=== PATIENT | female | born 1955 | race Caucasian/White ===

== ENCOUNTER 2016-07-08 11:43 | Inpatient (IN) | payer OTHER ==
[2016-07-08 13:11] VITALS: BMI 19.8
--- NOTE | 2016-07-08 14:30 | HP ---
COWS - Scale Resting Pulse: 0= [place] 80 or Below Sweatin=Flushed/Facial Moisture Restless Observation: 1= Difficult to Sit Still Pupil Size: 0= Normal to Room Light Bone or Joint Aches: 2= Severe Diffuse Aches Runny Nose/ Eye Tearin= Runny Nose/Eyes GI Upset > 30mins: 2= Nausea/Diarrhea Tremor Observation: 2= Slight Tremor Visible Yawning Observation: 2= >3x During Session Anxiety or Irritability: 2=Irritable/Anxious Goose Flesh Skin: 3=Piloerection COWS Score: 18 CIWA Score - CIWA Score Nausea/Vomitin-No Nausea/No Vomiting Muscle Tremors: 4-Moderate,w/Arms Extend Anxiety: 3 Agitation: 4-Moderately Restless Paroxysmal Sweats: 3 Orientation: 0-Oriented Tacttile Disturbances: 0-None Auditory Disturbances: 0-None Visual Disturbances: 0-None Headache: 0-None Present CIWA-Ar Total Score: 14 Admission ROS BHS - HPI Chief Complaint: I am tired and need to stop using. Allergies/Adverse Reactions: Allergies Allergy/AdvReac Type Severity Reaction Status Date / Time No Known Allergies Allergy Verified 07/08/16 14:12 History of Present Illness: pt is a 61yr old female with a history of heroin and alcohol dependence seeking detox for treatment. Exam Limitations: No Limitations - Ebola screening Have you traveled outside of the country in the last 21 days: No (N) Have you had contact with anyone from an Ebola affected area: No Have you been sick,other than usual withdrawal symptoms: No Do you have a fever: No - Review of Systems Constitutional: Loss of Appetite, Unintentional Wgt. Loss EENT: reports: No Symptoms Reported Cardiac: reports: No Symptoms Reported GI: reports: Poor Appetite, Poor Fluid Intake : reports: No Symptoms Reported Musculoskeletal: reports: Back Pain Integumentary: reports: Flushing Neuro: reports: Tingling, Tremors Endocrine: reports: Excessive Sweating, Flushing, Intolerance to Cold, Intolerance to Heat Hematology: reports: No Symptoms Reported Psychiatric: reports: Judgement Intact, Orientated x3, Agitated, Anxious Other Systems: Reviewed and Negative Patient History - Patient Medical History Hx Anemia: No Hx Asthma: No Hx Chronic Obstructive Pulmonary Disease (COPD): No Hx Cancer: No Hx Cardiac Disorders: No Hx Congestive Heart Failure: No Hx Hypertension: No Hx Hypercholesterolemia: No Hx Pacemaker: No HX Cerebrovascular Accident: No Hx Seizures: No Hx Dementia: No Hx Diabetes: No Hx Gastrointestinal Disorders: No Hx Liver Disease: No Hx Genitourinary Disorders: No Hx Sexually Transmitted Disorders: No Hx Renal Disease (ESRD): No Hx Thyroid Disease: No Hx Human Immunodeficiency Virus (HIV): Yes (SINCE 1991) Hx Hepatitis C: Yes (tx'ed with sommer ) Hx Depression: Yes (anxiety ) Hx Suicide Attempt: No Hx Bipolar Disorder: No Hx Schizophrenia: No - Patient Surgical History Past Surgical History: No - PPD History Previous Implant?: No Documented Results: Negative w/proof Date: 02/06/16 Results: 0 MM - Reproductive History Patient is a Female of Child Bearing Age (11 -55 yrs old): No Last Menstrual Period: 02/03/04 - Smoking Cessation Smoking history: Former smoker Have you smoked in the past 12 months: No Aproximately how many cigarettes per day: 0 If you are a former smoker, when did you quit?: 30 YEARS AGO Cigars Per Day: 0 Hx Chewing Tobacco Use: No Initiated information on smoking cessation: No - Substance & Tx. History Hx Alcohol Use: Yes Hx Substance Use: Yes Substance Use Type: Alcohol, Heroin Hx Substance Use Treatment: Yes - Substances Abused Alcohol-beer Route: Oral Frequency: Daily Amount used: 2 (40 oz.) Age of first use: 20 Date of Last Use: 07/07/16 Heroin Route: Inhalation Frequency: Daily Amount used: 3 bags Age of first use: 20 Date of Last Use: 07/08/16 Family Disease History - Family Disease History Family Disease History: Other: Brother (alcoholsm ) Admission Physical Exam [facility] - Vital Signs Vital Signs: Vital Signs - 24 hr 07/08/16 13:09 Temperature 96.4 F L Pulse Rate 67 Respiratory 20 Rate Blood Pressure 133/81 - Physical General Appearance: Yes: Appropriately Dressed, Moderate Distress, Thin, Irritable, Anxious HEENTM: Yes: Normal Voice Respiratory: Yes: Lungs Clear, Normal Breath Sounds, No Respiratory Distress Neck: Yes: No masses,lesions,Nodules Breast: Yes: Within Normal Limits Cardiology: Yes: Regular Rhythm, Regular Rate, S1, S2 Abdominal: Yes: Normal Bowel Sounds, Non Tender, Soft Genitourinary: Yes: Within Normal Limits Back: Yes: Normal Inspection Musculoskeletal: Yes: full range of Motion, Back pain Extremities: Yes: Normal Capillary Refill, Normal Inspection, Tremors Neurological: Yes: Fully Oriented, Alert, Normal Response Integumentary: Yes: Normal Color, Diaphoresis Lymphatic: Yes: Within Normal Limits - Diagnostic (1) Alcohol dependence with uncomplicated withdrawal Current Visit: Yes Status: Chronic (2) Opioid dependence with withdrawal Current Visit: Yes Status: Chronic (3) HIV (human immunodeficiency virus infection) Current Visit: Yes Status: Chronic Comment: has been compliant with her medication. (4) Hepatitis C Current Visit: Yes Status: Chronic Qualifiers: Viral hepatitis chronicity: unspecified Hepatic coma status: without hepatic coma Qualified Code(s): B19.20 - Unspecified viral hepatitis C without hepatic coma Cleared for Admission [facility] - Detox or Rehab [facility] Level of Care: Medically Managed Detox Regimen/Protocol: Methadone/Librium [facility] Breath Alcohol Content Breath Alcohol Content: 0 Urine Pregancy Test - Result Urine Test Results: Negative- NO Line Present Urine Drug Screen - Results Drug Screen Negative: No Urine Drug Screen Results: OPI-Opiates, BZO-Benzodiazepines, OXY-Oxycodone
[2016-07-08] MEDS ORDERED: MAG HYDROX/AL HYDROX/SIMETH 30 ML UNIT-DOSE CUP PO PRN (14:35)
[2016-07-08] MEDS ORDERED: chlordiazePOXIDE HCL 25 MG CAPSULE PO PRN (14:35)
[2016-07-08] MEDS ORDERED: MAGNESIUM CITRATE 300 ML BOTTLE PO PRN (14:35)
[2016-07-08] MEDS ORDERED: LOPERAMIDE HCL 2 MG CAPSULE PO PRN (14:35)
[2016-07-08] MEDS ORDERED: P-EPHED 60MG/TRIPROLIDI 2.5MG TABLET PO PRN (14:35)
[2016-07-08] MEDS ORDERED: ACETAMINOPHEN 325 MG TABLET (FP) PO PRN (14:35)
[2016-07-08] MEDS ORDERED: guaiFENesin/D-METHORPHAN HB 10 ML UNIT-DOSE CUPS PO PRN (14:35)
[2016-07-08] MEDS ORDERED: MENTHOL/PHENOL 1 EACH UD MM PRN (14:35)
[2016-07-08] MEDS ORDERED: MAGNESIUM HYDROX 2400MG/30ML ORAL SUSPENSION 30 ML CUP PO PRN (14:35)
[2016-07-08] MEDS ORDERED: IBUPROFEN 400 MG TABLET (FP) PO PRN (14:35)
[2016-07-08] MEDS ORDERED: chlordiazePOXIDE HCL 25 MG CAPSULE PO ONE (15:01)
[2016-07-08] MEDS ORDERED: METHADONE HCL 10 MG TABLET (FOR DETOX USE ONLY) PO ONE ×2 (15:04→23:00)
[2016-07-08] MEDS: chlordiazePOXIDE HCL 25 MG CAPSULE PO SCH ×2 (17:19→22:24)
[2016-07-08 20:02] LABS: URINE APPEARANCE CLOUDY; URINE BILIRUBIN NEGATIVE (NEGATIVE); URINE COLOR DKYELLOW; URINE GLUCOSE (UA) NEGATIVE (NEGATIVE); URINE KETONE NEGATIVE (NEGATIVE); URINE NITRITE POSITIVE (NEGATIVE); URINE PROTEIN NEGATIVE (NEGATIVE); URINE UROBILINOGEN 2.0 E.U/dl E.U./dl (0.2-1.0)
[2016-07-08 20:10] LABS: URINE BLOOD 2+ (NEGATIVE); URINE LEUK ESTERASE TRACE (NEGATIVE)
[2016-07-08 20:23] LABS: URINE BACTERIA FEW /hpf (NONE SEEN); URINE MUCUS FEW; URINE RBC 201 /hpf (0-3); URINE WBC 28 /hpf (3-5)
[2016-07-08] MEDS: EMTRICITABINE 200MG/TENOFOVIR 300MG PO SCH (22:23)
[2016-07-08] MEDS: RALTEGRAVIR POTASSIUM 400 MG TAB PO SCH (22:23)
[2016-07-08] MEDS: THIAMINE HCL 100 MG TABLET (FP) PO SCH (22:24)
[2016-07-08] MEDS: diphenhydrAMINE HCL 50 MG CAPSULE PO PRN (22:26)
[2016-07-09] MEDS: chlordiazePOXIDE HCL 25 MG CAPSULE PO SCH ×2 (06:23→11:55)
[2016-07-09] MEDS ORDERED: METHADONE HCL 10 MG TABLET (FOR DETOX USE ONLY) PO SCH (10:00)
[2016-07-09 10:44] LABS: MCH 28.8 pg (25.7-33.7); MCHC 32.4 g/dl (32.0-36.0); MEAN CELL VOLUME 88.9 fl (80-96); MEAN PLT VOLUME 9.9 fl (7.5-11.1); PLATELET COUNT 69 K/MM3 (134-434); WHITE BLOOD COUNT 2.9 K/mm3 (4.0-10.0)
[2016-07-09] MEDS ORDERED: diazePAM 5 MG TABLET PO ONE (11:18)
[2016-07-09] MEDS: RALTEGRAVIR POTASSIUM 400 MG TAB PO SCH ×2 (11:55→22:35)
[2016-07-09] MEDS: PRENATAL VITAMINS W/ FOLIC ACID TABLET (FP) PO SCH (11:56)
[2016-07-09 11:58] LABS: ALBUMIN 3.3 g/dl (3.4-5.0); ANION GAP 8 (8-16); CALCIUM 8.6 mg/dL (8.5-10.1); CO2 28 mmol/L (21-32); GLUCOSE,RANDOM 123 mg/dL (74-106)
[2016-07-09 12:01] LABS: ALK PHOS 128 U/L (45-117); CREATININE 0.7 mg/dL (0.55-1.02); SGOT/AST 42 U/L (15-37); SGPT/ALT 21 U/L (12-78); TOT PROT 8.1 g/dl (6.4-8.2)
--- NOTE | 2016-07-09 13:34 | PN ---
[facility] CIWA - CIWA Score Nausea/Vomitin Muscle Tremors: 3 Anxiety: 3 Agitation: 3 Paroxysmal Sweats: 1-Minimal Palms Moist Orientation: 0-Oriented Tacttile Disturbances: 1-Very Mild Itch/Numbness Auditory Disturbances: 1-Very Mild Visual Disturbances: 1-Very Mild Sensitivity Headache: 2-Mild CIWA-Ar Total Score: 18 BHS COWS - Scale Resting Pulse: 0= [place] 80 or Below Sweatin= Chills/Flushing Restless Observation: 3= Extraneous Movement Pupil Size: 1= Pupils >than Normal Bone or Joint Aches: 2= Severe Diffuse Aches Runny Nose/ Eye Tearin= Runny Nose/Eyes GI Upset > 30mins: 3= Vomiting/Diarrhea Tremor Observation of Outstretched Hands: 2= Slight Tremor Visible Yawning Observation: 1= 1-2x During Session Anxiety or Irritability: 2=Irritable/Anxious Goose Flesh Skin: 0=Smooth Skin COWS Score: 17 [facility] Progress Note (SOAP) Subjective: ALERT,IRRITABLE,ANXIOUS,INTERRUPTED SLEEP,TREMOR,PAIN IN THE BODY AND BACK Objective: 07/09/16 13:29 Vital Signs Temperature 97.9 F 07/09/16 10:38 Pulse Rate 78 07/09/16 10:38 Respiratory Rate 16 07/09/16 10:38 Blood Pressure 125/76 07/09/16 10:38 O2 Sat by Pulse Oximetry (%) EKG NSR,NORMAL ECG Laboratory Last Values WBC 2.9 K/mm3 (4.0-10.0) L D 07/09/16 06:00 RBC 4.17 M/mm3 (3.60-5.2) 07/09/16 06:00 Hgb 12.0 GM/dL (10.7-15.3) D 07/09/16 06:00 Hct 37.1 % (32.4-45.2) 07/09/16 06:00 MCV 88.9 fl (80-96) 07/09/16 06:00 MCHC 32.4 g/dl (32.0-36.0) 07/09/16 06:00 RDW 15.0 % (11.6-15.6) 07/09/16 06:00 Plt Count 69 K/MM3 (134-434) L 07/09/16 06:00 MPV 9.9 fl (7.5-11.1) 07/09/16 06:00 Sodium 142 mmol/L (136-145) 07/09/16 06:00 Potassium 4.1 mmol/L (3.5-5.1) 07/09/16 06:00 Chloride 106 mmol/L (98-107) 07/09/16 06:00 Carbon Dioxide 28 mmol/L (21-32) 07/09/16 06:00 Anion Gap 8 (8-16) 07/09/16 06:00 BUN 13 mg/dL (7-18) D 07/09/16 06:00 Creatinine 0.7 mg/dL (0.55-1.02) 07/09/16 06:00 Creat Clearance w eGFR > 60 (>60) 07/09/16 06:00 Random Glucose 123 mg/dL (74-106) H 07/09/16 06:00 Calcium 8.6 mg/dL (8.5-10.1) 07/09/16 06:00 Total Bilirubin 1.0 mg/dL (0.2-1.0) 07/09/16 06:00 AST 42 U/L (15-37) H D 07/09/16 06:00 ALT 21 U/L (12-78) 07/09/16 06:00 Alkaline Phosphatase 128 U/L (45-117) H 07/09/16 06:00 Total Protein 8.1 g/dl (6.4-8.2) 07/09/16 06:00 Albumin 3.3 g/dl (3.4-5.0) L 07/09/16 06:00 Urine Color Dkyellow 07/08/16 19:36 Urine Appearance Cloudy 07/08/16 19:36 Urine pH 7.0 (5.0-8.0) 07/08/16 19:36 Ur Specific [place] 1.020 (1.001-1.035) 07/08/16 19:36 Urine Protein Negative (NEGATIVE) 07/08/16 19:36 Urine Glucose (UA) Negative (NEGATIVE) 07/08/16 19:36 Urine Ketones Negative (NEGATIVE) 07/08/16 19:36 Urine Blood 2+ (NEGATIVE) H 07/08/16 19:36 Urine Nitrite Positive (NEGATIVE) 07/08/16 19:36 Urine Bilirubin Negative (NEGATIVE) 07/08/16 19:36 Urine Urobilinogen 2.0 e.u/dl E.U./dl (0.2-1.0) H 07/08/16 19:36 Ur Leukocyte Esterase Trace (NEGATIVE) H D 07/08/16 19:36 Urine RBC 201 /hpf (0-3) 07/08/16 19:36 Urine WBC 28 /hpf (3-5) 07/08/16 19:36 Ur Epithelial Cells Many /hpf (FEW) 07/08/16 19:36 Amorphous Urates Few /hpf (NONE SEEN) 07/08/16 19:36 Urine Bacteria Few /hpf (NONE SEEN) 07/08/16 19:36 Urine Mucus Few 07/08/16 19:36 LABS PENDING Assessment: 07/09/16 13:30 WITHDRAWAL SYMPTOM Plan: CONTINUE DETOX,REPEAT UA,URINE FOR C/S,FLUID,BGM MONITORING INITIAL GLUCOSE IS 123
--- NOTE | 2016-07-09 13:44 | PN ---
S Progress Note Note: WILL START PATIENT ON BACTRIM DS 1 TAB PO BID AFTER REPEAT URINE FOR UA AND URINE FOR C/S, LEUKOPENIA PROBABLY FROM HIV WBC 2900,INITIAL GLUCOSE IS 123,BGM MONITORING
[2016-07-09] MEDS: CYCLOBENZAPRINE HCL 10 MG TABLET (FP) PO PRN (15:11)
[2016-07-09] MEDS: diazePAM 5 MG TABLET PO SCH ×2 (15:11→22:35)
[2016-07-09] MEDS ORDERED: chlordiazePOXIDE HCL 25 MG CAPSULE PO SCH (17:00)
[2016-07-09] MEDS: EMTRICITABINE 200MG/TENOFOVIR 300MG PO SCH (22:35)
[2016-07-09] MEDS: SULFAMETHOXAZOLE/TRIMETHOPRIM 800MG/160MG D.S. TABLET PO SCH (22:35)
[2016-07-09] MEDS: THIAMINE HCL 100 MG TABLET (FP) PO SCH (22:35)
[2016-07-10] MEDS: diazePAM 5 MG TABLET PO SCH ×3 (06:01→22:19)
[2016-07-10] MEDS: CYCLOBENZAPRINE HCL 10 MG TABLET (FP) PO PRN (06:03)
[2016-07-10] MEDS: METHADONE HCL 5 MG TABLET (FOR DETOX USE ONLY) PO SCH (10:16)
[2016-07-10] MEDS: PRENATAL VITAMINS W/ FOLIC ACID TABLET (FP) PO SCH (10:16)
[2016-07-10] MEDS: SULFAMETHOXAZOLE/TRIMETHOPRIM 800MG/160MG D.S. TABLET PO SCH ×2 (10:16→22:19)
[2016-07-10] MEDS: RALTEGRAVIR POTASSIUM 400 MG TAB PO SCH ×2 (10:16→22:19)
[2016-07-10] MEDS: diazePAM 5 MG TABLET PO PRN (10:16)
--- NOTE | 2016-07-10 11:41 | EKG ---
Test Reason : Blood Pressure : / mmHG Vent. Rate : 064 BPM Atrial Rate : 064 BPM P-R Int : 122 ms QRS Dur : 092 ms QT Int : 426 ms P-R-T Axes : 066 013 020 degrees QTc Int : 439 ms NORMAL SINUS RHYTHM NORMAL ECG NO PREVIOUS ECGS AVAILABLE Confirmed by JACK DOZIER MD ([id number]) on 07/10/2016 11:40:26 AM Referred By: Rickey Lawrence Confirmed By:JACK DOZIER MD
--- NOTE | 2016-07-10 12:22 | PN ---
S CIWA - CIWA Score Nausea/Vomitin Muscle Tremors: 3 Anxiety: 2 Agitation: 2 Paroxysmal Sweats: 1-Minimal Palms Moist Orientation: 0-Oriented Tacttile Disturbances: 1-Very Mild Itch/Numbness Auditory Disturbances: 1-Very Mild Visual Disturbances: 1-Very Mild Sensitivity Headache: 2-Mild CIWA-Ar Total Score: 16 BHS COWS - Scale Resting Pulse: 0= [place] 80 or Below Sweatin=Flushed/Facial Moisture Restless Observation: 3= Extraneous Movement Pupil Size: 1= Pupils >than Normal Bone or Joint Aches: 2= Severe Diffuse Aches Runny Nose/ Eye Tearin= Nasal Congestion GI Upset > 30mins: 2= Nausea/Diarrhea Tremor Observation of Outstretched Hands: 2= Slight Tremor Visible Yawning Observation: 1= 1-2x During Session Anxiety or Irritability: 2=Irritable/Anxious Goose Flesh Skin: 0=Smooth Skin COWS Score: 16 S Progress Note (SOAP) Subjective: ALERT,IRRITABLE,ANXIOUS,INTERRUPTED SLEEP,TREMOR,PAIN IN THE BODY AND BACK Objective: 07/10/16 12:21 Vital Signs Temperature 96.8 F L 07/10/16 10:00 Pulse Rate 73 07/10/16 10:00 Respiratory Rate 18 07/10/16 10:00 Blood Pressure 129/91 07/10/16 10:00 O2 Sat by Pulse Oximetry (%) Assessment: 07/10/16 12:21 WITHDRAWAL SYMPTOM Plan: CONTINUE DETOX,URINE FOR C/S PENDING
[2016-07-10] MEDS ORDERED: chlordiazePOXIDE 5 MG CAPSULE PO SCH (17:00)
[2016-07-10 17:35] LABS: URINE APPEARANCE CLEAR; URINE BILIRUBIN NEGATIVE (NEGATIVE); URINE BLOOD NEGATIVE (NEGATIVE); URINE COLOR DKYELLOW; URINE GLUCOSE (UA) NEGATIVE (NEGATIVE); URINE KETONE NEGATIVE (NEGATIVE); URINE LEUK ESTERASE 3+ (NEGATIVE); URINE NITRITE NEGATIVE (NEGATIVE); URINE PROTEIN NEGATIVE (NEGATIVE); URINE UROBILINOGEN 2.0 E.U/dl E.U./dl (0.2-1.0)
[2016-07-10 17:39] LABS: URINE HYALINE CAST 1 /lpf; URINE RBC 3 /hpf (0-3); URINE WBC 24 /hpf (3-5)
[2016-07-10] MEDS: EMTRICITABINE 200MG/TENOFOVIR 300MG PO SCH (22:19)
[2016-07-10] MEDS: THIAMINE HCL 100 MG TABLET (FP) PO SCH (22:19)
--- NOTE | 2016-07-11 10:10 | PN ---
BHS Progress Note (SOAP) Subjective: sweats shakes interrupted sleep agitation Objective: 07/11/16 10:10 Vital Signs Temperature 97.7 F 07/11/16 06:00 Pulse Rate 66 07/11/16 06:00 Respiratory Rate 16 07/11/16 06:00 Blood Pressure 98/54 07/11/16 06:00 O2 Sat by Pulse Oximetry (%) awake/alert ambulating no acute distress Assessment: 07/11/16 10:11 withdrawal sx Plan: continue detox increase fluids
[2016-07-11] MEDS: RALTEGRAVIR POTASSIUM 400 MG TAB PO SCH ×2 (10:22→22:15)
[2016-07-11] MEDS: PRENATAL VITAMINS W/ FOLIC ACID TABLET (FP) PO SCH (10:22)
[2016-07-11] MEDS: SULFAMETHOXAZOLE/TRIMETHOPRIM 800MG/160MG D.S. TABLET PO SCH ×2 (10:22→22:16)
[2016-07-11] MEDS: METHADONE HCL 5 MG TABLET (FOR DETOX USE ONLY) PO SCH (10:22)
[2016-07-11] MEDS: diazePAM 5 MG TABLET PO SCH ×2 (10:25→22:15)
[2016-07-11] MEDS ORDERED: chlordiazePOXIDE HCL 10 MG CAPSULE PO SCH (17:00)
[2016-07-11] MEDS: CYCLOBENZAPRINE HCL 10 MG TABLET (FP) PO PRN (19:20)
[2016-07-11] MEDS: diazePAM 5 MG TABLET PO PRN (19:22)
[2016-07-11] MEDS: diphenhydrAMINE HCL 50 MG CAPSULE PO PRN (22:15)
[2016-07-11] MEDS: THIAMINE HCL 100 MG TABLET (FP) PO SCH (22:15)
[2016-07-11] MEDS: EMTRICITABINE 200MG/TENOFOVIR 300MG PO SCH (22:57)
[2016-07-12] MEDS ORDERED: METHADONE HCL 10 MG TABLET (FOR DETOX USE ONLY) PO SCH (10:00)
[2016-07-12] MEDS: diazePAM 5 MG TABLET PO SCH ×2 (10:32→22:20)
[2016-07-12] MEDS: PRENATAL VITAMINS W/ FOLIC ACID TABLET (FP) PO SCH (10:32)
[2016-07-12] MEDS: RALTEGRAVIR POTASSIUM 400 MG TAB PO SCH ×2 (10:32→22:20)
[2016-07-12] MEDS: SULFAMETHOXAZOLE/TRIMETHOPRIM 800MG/160MG D.S. TABLET PO SCH ×2 (10:33→22:19)
--- NOTE | 2016-07-12 11:30 | PN ---
BHS Progress Note (SOAP) Subjective: interrupted sleep, sweats, but better, want sleep aide for IS Objective: 07/12/16 11:28 Vital Signs Temperature 97.9 F 07/12/16 11:21 Pulse Rate 75 07/12/16 11:21 Respiratory Rate 18 07/12/16 11:21 Blood Pressure 120/70 07/12/16 11:21 O2 Sat by Pulse Oximetry (%) Laboratory Tests 07/08/16 07/09/16 07/09/16 19:36 06:00 06:00 WBC 2.9 L D RBC 4.17 Hgb 12.0 D Hct 37.1 MCV 88.9 MCHC 32.4 RDW 15.0 Plt Count 69 L MPV 9.9 Sodium 142 Potassium 4.1 Chloride 106 Carbon Dioxide 28 Anion Gap 8 BUN 13 D Creatinine 0.7 Creat Clearance w eGFR > 60 POC Glucometer Random Glucose 123 H Calcium 8.6 Total Bilirubin 1.0 AST 42 H D ALT 21 Alkaline Phosphatase 128 H Total Protein 8.1 Albumin 3.3 L Urine Color Dkyellow Urine Appearance Cloudy Urine pH 7.0 Ur Specific [place] 1.020 Urine Protein Negative Urine Glucose (UA) Negative Urine Ketones Negative Urine Blood 2+ H Urine Nitrite Positive Urine Bilirubin Negative Urine Urobilinogen 2.0 e.u/dl H Ur Leukocyte Esterase Trace H D Urine RBC 201 Urine WBC 28 Ur Epithelial Cells Many Amorphous Urates Few Urine Bacteria Few Hyaline Casts Urine Mucus Few RPR Titer 07/09/16 07/10/16 07/10/16 06:00 06:13 16:15 WBC RBC Hgb Hct MCV MCHC RDW Plt Count MPV Sodium Potassium Chloride Carbon Dioxide Anion Gap BUN Creatinine Creat Clearance w eGFR POC Glucometer 122 Random Glucose Calcium Total Bilirubin AST ALT Alkaline Phosphatase Total Protein Albumin Urine Color Dkyellow Urine Appearance Clear Urine pH 7.0 Ur Specific [place] 1.018 Urine Protein Negative Urine Glucose (UA) Negative Urine Ketones Negative Urine Blood Negative Urine Nitrite Negative Urine Bilirubin Negative Urine Urobilinogen 2.0 e.u/dl H Ur Leukocyte Esterase 3+ H D Urine RBC 3 Urine WBC 24 Ur Epithelial Cells Rare Amorphous Urates Urine Bacteria Hyaline Casts 1 Urine Mucus RPR Titer Nonreactive 07/11/16 07/12/16 06:11 06:50 WBC RBC Hgb Hct MCV MCHC RDW Plt Count MPV Sodium Potassium Chloride Carbon Dioxide Anion Gap BUN Creatinine Creat Clearance w eGFR POC Glucometer 94 72 Random Glucose Calcium Total Bilirubin AST ALT Alkaline Phosphatase Total Protein Albumin Urine Color Urine Appearance Urine pH Ur Specific [place] Urine Protein Urine Glucose (UA) Urine Ketones Urine Blood Urine Nitrite Urine Bilirubin Urine Urobilinogen Ur Leukocyte Esterase Urine RBC Urine WBC Ur Epithelial Cells Amorphous Urates Urine Bacteria Hyaline Casts Urine Mucus RPR Titer pt aox3 in nad ambulating Assessment: 07/12/16 11:29 withdrawal sx;s Plan: cont. detox increase fluids ambien 10mg hs d/c in am
[2016-07-12] MEDS: hydrOXYzine PAMOATE 50 MG CAPSULE (FP) PO PRN ×2 (12:19→16:47)
[2016-07-12] MEDS: CYCLOBENZAPRINE HCL 10 MG TABLET (FP) PO PRN (16:47)
[2016-07-12] MEDS: EMTRICITABINE 200MG/TENOFOVIR 300MG PO SCH (22:20)
[2016-07-12] MEDS: THIAMINE HCL 100 MG TABLET (FP) PO SCH (22:20)
[2016-07-12] MEDS: diphenhydrAMINE HCL 50 MG CAPSULE PO PRN (22:20)
[2016-07-13] MEDS ORDERED: METHADONE HCL 5 MG TABLET (FOR DETOX USE ONLY) PO SCH (06:00)
[2016-07-13 06:18] VITALS: BP 91/53; PULSE 72; TEMP 97.7
--- NOTE | 2016-07-13 08:37 | DS ---
[facility] Detox Discharge Summary Admission Date: 07/08/16 Discharge Date: 07/13/16 - History Present History: Alcohol Dependence, Opioid Dependence - Physical Exam Results Vital Signs: Vital Signs Temperature 97.7 F 07/13/16 06:00 Pulse Rate 72 07/13/16 06:00 Respiratory Rate 16 07/13/16 06:00 Blood Pressure 91/53 07/13/16 06:00 O2 Sat by Pulse Oximetry (%) - Treatment Hospital Course: Detox Protocol Followed, Detoxed Safely, Responded well, Discharged Condition Good, Rehab Referral Accepted - Medication Discharge Medications: Ambulatory Orders Emtricitabine/Tenofovir [Truvada -] 1 tab PO HS 08/15/14 Raltegravir [Isentress -] 400 mg PO BID 08/15/14 - Diagnosis (1) Alcohol dependence with uncomplicated withdrawal Current Visit: Yes Status: Chronic (2) Opioid dependence with withdrawal Current Visit: Yes Status: Chronic (3) HIV (human immunodeficiency virus infection) Current Visit: Yes Status: Chronic (4) Hepatitis C Current Visit: Yes Status: Chronic Qualifiers: Viral hepatitis chronicity: unspecified Hepatic coma status: without hepatic coma Qualified Code(s): B19.20 - Unspecified viral hepatitis C without hepatic coma - AMA Did Patient Leave Against Medical Advice: No
[2016-07-13] MEDS ORDERED: diazePAM 5 MG TABLET PO SCH (10:00)
== END 2016-07-13 09:40 | disposition home or self-care (01) | DRG 897 ==
LOC: YASAS 11:43 → Y6N 14:54
PROVIDERS: ADMIT Internal Medicine Addiction Medicine; ATTEND Internal Medicine Addiction Medicine
PROC: HZ2ZZZZ Detoxification Services for Substance Abuse Treatment (ICD-10-PCS; principal; 2016-07-08)
DX: F19.230 Other psychoactive substance dependence with withdrawal, uncomplicated (principal); F11.23 Opioid dependence with withdrawal; F10.230 Alcohol dependence with withdrawal, uncomplicated; Z21 Asymptomatic human immunodeficiency virus [HIV] infection status; B19.20 Unspecified viral hepatitis C without hepatic coma; D72.819 Decreased white blood cell count, unspecified; Z87.891 Personal history of nicotine dependence
CPT/HCPCS: 36415; 80053; 81003; 81015; 85027; 86593; 87086; 93005; 93010